=== PATIENT | male | born 1985 | race African-American/Black ===

== ENCOUNTER 2022-04-10 11:38 | Emergency (ER) | payer OTHER ==
[~2022-04-10] VITALS: Ht 180.3 cm; Wt 81.6 kg
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
--- NOTE | 2022-04-10 12:10 | NUR ---
PATIENT TAKEN TO RADIOLOGY VIA GURNEY
--- NOTE | 2022-04-10 13:50 | NUR ---
PATIENT IS DISCHARGE IN A STABLE CONDITION- OK TO BOOK. PATIENT TAKEN BY [employer].
[2022-04-10 13:56] VITALS: BP 110/66
[2022-04-10] MEDS ORDERED: IBUPROFEN 600 MG TABLET PO ONE (15:00)
== END 2022-04-10 13:50 ==
LOC: EDBD 11:40 → ER 11:40
DX: S60.041A Contusion of right ring finger without damage to nail, initial encounter (principal); S09.90XA Unspecified injury of head, initial encounter; J45.909 Unspecified asthma, uncomplicated; Y04.0XXA Assault by unarmed brawl or fight, initial encounter; Y93.89 Activity, other specified; Y92.89 Other specified places as the place of occurrence of the external cause; Y99.8 Other external cause status
CPT/HCPCS: 70450-TC; 72125-TC; 73130-TC